=== PATIENT | female | born 1995 | race Caucasian/White ===

== ENCOUNTER 2024-08-26 23:52 | Emergency (ER) | payer OTHER, BC, SELFPAY ==
[2024-08-26 23:56] VITALS: BMI 35.0
[2024-08-26 23:59] VITALS: BP 117/80; PULSE 116; RESP 18; TEMP 37.2; O2SAT 96
--- NOTE | 2024-08-27 00:08 | XR_ITS ---
Examination: PA chest single view Technique: Upright PA chest single view Exam date and time: August 27, 2024 12:11 AM Indications: Coughing beginning 3 weeks ago Findings: Normal heart size Lungs are clear. The osseous structures are intact Impression: No active disease
--- NOTE | 2024-08-27 00:09 | PD.EDURI ---
Upper Respiratory Inf. RME/HPI General Chief Complaint: Flu Like Symptoms Stated Complaint: COUGH Time Seen by Provider: 08/27/24 00:08 Arrival date/time: 08/26/24 23:52 28F with no significant PMH presents to ED with 3 weeks of on and off cough. Patient was seen by teledoc 4 days ago and started on Augmentin. Limitations: no limitations Related Data Previous Rx's ?Medication ?Instructions ?Recorded acetaminophen 650 mg 650 mg PO Q8H PRN fever or pain 11/29/19 tablet,extended release #30 tabs benzonatate 100 mg capsule See Rx Instructions .Route 11/29/19 (Bhavya Montalvo) .COMPLEX cough #30 caps cetirizine 5 mg-pseudoephedrine ER 1 tab PO Q12H #20 tabs 11/29/19 120 mg tablet,extended release,12hr (Zyrtec-D) ibuprofen 600 mg tablet 600 mg PO Q8H PRN fever or pain 11/29/19 #30 tabs ipratropium bromide 21 mcg (0.03 See Rx Instructions .Route 11/29/19 %) nasal spray .COMPLEX #30 mL azithromycin 250 mg tablet See Rx Instructions PO .COMPLEX #6 08/27/24 tabs Allergies Allergy/AdvReac Type Severity Reaction Status Date / Time No Known Allergies Allergy Verified 11/29/19 18:05 Review of Systems Review of Systems Systems Reviewed: All systems reviewed, normal except as documented Constitutional Constitutional: Reports system reviewed and no additional complaints, except as documented, Denies fever(s) and Denies headache(s) ENT Ears, Nose, Mouth, and Throat: Denies disequilibrium and Denies headache(s) Cardiovascular Cardiovascular: Reports system reviewed and no additional complaints, except as documented, Denies chest pain and Denies dyspnea Respiratory Respiratory: Reports system reviewed and no additional complaints, except as documented, Reports as per HPI, Reports cough and Denies dyspnea Gastrointestinal Gastrointestinal: Reports system reviewed and no additional complaints, except as documented, Denies abdominal pain, Denies nausea and Denies vomiting Neurologic Neurologic: Reports system reviewed and no additional complaints, except as documented, Denies confusion, Denies disequilibrium and Denies headache(s) Psychiatric Psychiatric: Denies confusion Past Medical History Past Medical History CARDIAC: Negative Congestive Heart Failure RESPIRATORY: Negative Chronic Obstructive Pulmonary Disease (COPD) GENITOURINARY: Negative Renal Disease ENDOCRINE: Negative Diabetes Mellitus Type 1 or Diabetes Mellitus Type 2 Social History SMOKING STATUS: Never smoker ED Exam General Limitations: Present no limitations General appearance: Present alert and in no apparent distress Head Head exam: Present atraumatic Eye Eye exam: Present normal appearance, PERRL and EOMI ENT ENT exam: Present normal exam, normal oropharynx and mucous membranes moist Neck Neck exam: Present normal inspection, full ROM and trachea midline Chest Chest inspection: Present normal inspection and symmetric chest wall rise Respiratory Respiratory exam: Present normal lung sounds bilaterally Cardiovascular Cardiovascular exam: Present regular rate, normal rhythm and normal heart sounds Abdominal Exam Abdominal exam: Present soft and normal bowel sounds Extremities Exam Extremities exam: Present normal inspection and full ROM Back Exam Back exam: Present normal inspection and full ROM Neurological Exam Neurological exam: Present alert, oriented X3 and CN II-XII intact Psychiatric Psychiatric exam: Present normal affect and normal mood Skin Skin exam: Present warm, dry, intact and normal color Course Quality Measures none Orders Category Date Time Status XR chest 1V portable Stat Exams 08/27/24 00:08 Taken Vital Signs Vital signs: Vital Signs Temperature 99 F 08/26/24 23:59 Pulse Rate 116 H 08/26/24 23:59 Respiratory Rate 18 08/26/24 23:59 Blood Pressure 117/80 08/26/24 23:59 Pulse Oximetry (%) 96 08/26/24 23:59 Oxygen Delivery Method Room Air 08/26/24 23:59 O2 at 96% on RA and WNLs Upper Respiratory Infection MDM Narrative MDM Narrative:: 28F with no significant PMH presents to ED with 3 weeks of on and off cough. Patient was seen by teledoc 4 days ago and started on Augmentin. Physical exam reveals clear ENT and lungs. Patient is afebrile, calm, and alert. Wet XR reveals some PNA pending official report. Will add Z-haylee for atypical coverage to Augmentin given duration of symptoms. Patient data External records reviewed:: [facility] previous records Clinical information provided by:: patient Social determinants that could affect healthcare access:: none Patient has the following chronic illnesses:: none How is presenting disease/condition affected by chronic disease/condition?: no chronic disease Evaluation data The following diagnostics were reviewed and interpreted by me:: radiology exam(s) Lab and/or radiology exams considered but not ordered:: ordered Interpretation Summary: above Medications / Prescriptions Medications or Prescriptions considered but not ordered:: not ordered Medication administrations:: n/a Consultations Consultation(s) initiated? (list below): No Diagnosis Upper Respiratory Differential Diagnosis: upper respiratory infection, croup, otitis media, sinusitis, viral infection, bronchitis, influenza, pharyngitis and other (CAP, Valley Fever) Most likely diagnosis given after review of the tests above:: CAP Admission Indicated Admission indicated?: not indicated Admission Request Was there a request for admission?: No Disposition Plan Disposition Plan: Discharge Discharge Attestation Discharge Attestation: The patient and all family members were given an opportunity to ask questions and understood the discharge instructions. Discharge instructions specifically effects, indications for sooner follow up or return to the emergency department, and the expected course of current diagnosis. Patient condition: Stable Discharge Plan Plan Patient Disposition: HOME (Self Care) Prescriptions/Referrals Prescriptions/Med Rec: New azithromycin 250 mg tablet See Rx Instructions .ROUTE .COMPLEX Qty: 6 0RF Rx Instructions: For 250 mg dose pack: take 500 mg today (day 1), then 250 mg for 4 days (days 2-5) No Action acetaminophen 650 mg tablet extended release 650 mg PO Q8H PRN (Reason: fever or pain) Qty: 30 0RF Rx Instructions: swallow whole; do not crush, chew, break, dissolve, cut, or open ibuprofen 600 mg tablet 600 mg PO Q8H PRN (Reason: fever or pain) Qty: 30 0RF Rx Instructions: prn pain / fever ipratropium bromide 0.03 % spray,non-aerosol See Rx Instructions .Route .COMPLEX Qty: 30 0RF Rx Instructions: 2 sprays to each nostril q6-8 hours prn congestion; wait 30 seconds between sprays benzonatate [Tessalon Perles] 100 mg capsule See Rx Instructions .Route .COMPLEX Qty: 30 0RF Rx Instructions: 1-2 cap(s) PO Q8 hours prn cough cetirizine-pseudoephedrine [Zyrtec-D] 5-120 mg tablet extended release 12 hr 1 tab PO Q12H Qty: 20 0RF Problem List Clinical Impression: CAP (community acquired pneumonia) Patient/Caregiver Discharge Instructions Additional Instructions: Please follow-up with PCP within 24-48 hours and return immediately if symptoms worsen Finish Augmentin as well. Print Language: Kenyan Stand Alone Forms: Patient Portal Info Letter PA/MEDICAL DOSIMETRIST Supervising Physician PA/MEDICAL DOSIMETRIST Supervising Physician: Dr. Gregory
== END 2024-08-27 01:56 | disposition home or self-care (01) ==
LOC: SERX 08-27 03:53
PROVIDERS: Emergency Provider Emergency Medicine; PCP Family Medicine
DX: J18.9 Pneumonia, unspecified organism (principal)
CPT/HCPCS: 71045; 99283

== ENCOUNTER 2024-10-05 22:40 | Emergency (ER) | payer OTHER, BC, SELFPAY ==
[2024-10-05 22:40] VITALS: BMI 33.6
--- NOTE | 2024-10-05 22:52 | PC.NURSE ---
PT ELOPED BEFORE BEING TRIAGE BY PROVIDER.
== END 2024-10-05 22:52 | disposition left against medical advice (07) ==
LOC: SERX 22:58
PROVIDERS: Emergency Provider Emergency Medicine
DX: Z53.21 Procedure and treatment not carried out due to patient leaving prior to being seen by health care provider (principal)

== ENCOUNTER 2024-10-06 10:33 | Emergency (ER) | payer OTHER, BC, SELFPAY ==
[2024-10-06 12:08] VITALS: BP 125/85; PULSE 101; RESP 16; TEMP 37.2; O2SAT 98; BMI 36.3
--- NOTE | 2024-10-06 12:35 | XR_ITS ---
Examination: Complete OB ultrasound, less than 14 weeks, transabdominal Date and time of exam: October 06, 2024 1248 hours INDICATIONS: Vaginal bleeding beginning 2 days ago pelvic cramping beginning today Technique: Obstetrical ultrasound images less than 14 weeks performed via transabdominal imaging Findings: Uterus 9.8 x 6.9 x 6.0 cm Intrauterine gestational sac 1.6 cm corresponds to 6 weeks 4 days gestational age No pole No cardiac activity Right ovary obscured by bowel gas Left ovary 3.2 x 2.5 x 1.8 cm arterial flow IMPRESSION: Empty intrauterine gestational sac corresponding to 6 weeks 4 days gestational age Recommend transvaginal pelvic sonography follow-up to assess for viability
--- NOTE | 2024-10-06 12:36 | EDNOTE_ITS ---
<Statement entered by Barb Montaño MD - 10/07/24 06:45> As co-signing physician, I was present and available for consult prn. I concur with the plan and care as documented by the midlevel provider. ED Female Urogenital RME/HPI General Chief complaint: Urogenital-Female Stated complaint: VAGINAL BLEEDING x 2 DAYS,PAIN TODAY, + PREG Time Seen by Provider: 10/06/24 12:34 Arrival date/time: 10/06/24 10:33 RME / HPI RME / HPI Narrative: 28-year-old patient presents emergency department with complaint of needing an ultrasound. Patient states that she was sent here by her OB to get an ultrasound she states that she suffered what she thinks was a miscarriage last night because there was a lot of vaginal bleeding with blood products. She is SB1. Patient states that she either blood type A or B positive. She denies any pain currently she denies fever. Related Data Previous Rx's ?Medication ?Instructions ?Recorded acetaminophen 650 mg 650 mg PO Q8H PRN fever or pain 11/29/19 tablet,extended release #30 tabs benzonatate 100 mg capsule See Rx Instructions .Route 11/29/19 (Tescornelius Montalvo) .COMPLEX cough #30 caps cetirizine 5 mg-pseudoephedrine ER 1 tab PO Q12H #20 tabs 11/29/19 120 mg tablet,extended release,12hr (Zyrtec-D) ibuprofen 600 mg tablet 600 mg PO Q8H PRN fever or pain 11/29/19 #30 tabs ipratropium bromide 21 mcg (0.03 See Rx Instructions .Route 11/29/19 %) nasal spray .COMPLEX #30 mL azithromycin 250 mg tablet See Rx Instructions PO .COMPLEX #6 08/27/24 tabs Allergies Allergy/AdvReac Type Severity Reaction Status Date / Time No Known Allergies Allergy Verified 10/06/24 10:35 Review of Systems Review of Systems Systems Reviewed: All systems reviewed, normal except as documented Constitutional Constitutional: Reports system reviewed and no additional complaints, except as documented Cardiovascular Cardiovascular: Reports system reviewed and no additional complaints, except as documented Respiratory Respiratory: Reports system reviewed and no additional complaints, except as documented Gastrointestinal Gastrointestinal: Reports system reviewed and no additional complaints, except as documented Genitourinary Genitourinary: Reports system reviewed and no additional complaints, except as documented Musculoskeletal Musculoskeletal: Reports system reviewed and no additional complaints, except as documented Neurologic Neurologic: Reports system reviewed and no additional complaints, except as documented Psychiatric Psychiatric: Reports system reviewed and no additional complaints, except as documented Endocrine Endocrine: Reports system reviewed and no additional complaints, except as documented ED Exam General General appearance: Present alert and in no apparent distress Head Head exam: Present atraumatic and normocephalic ENT ENT exam: Present normal exam and normal oropharynx Chest Chest inspection: Present normal inspection and symmetric chest wall rise Respiratory Respiratory exam: Present normal lung sounds bilaterally Cardiovascular Cardiovascular exam: Present regular rate and normal rhythm Extremities Exam Extremities exam: Present normal inspection and full ROM Neurological Exam Neurological exam: Present alert and oriented X3 Course Quality Measures none Orders Category Date Time Status US OB <= 14 weeks fetus Stat Exams 10/06/24 12:35 Completed Urinalysis, C/S if Indicated Stat Lab 10/06/24 13:10 Completed Vital Signs Vital signs: Vital Signs Temperature 98.9 F 10/06/24 12:08 Pulse Rate 101 H 10/06/24 12:08 Respiratory Rate 16 10/06/24 12:08 Blood Pressure 125/85 H 10/06/24 12:08 Pulse Oximetry (%) 98 10/06/24 12:08 Oxygen Delivery Method Room Air 10/06/24 12:08 Urogenital - Female MDM Narrative MDM Narrative:: Signs and symptoms appears consistent with missed no products of conception noted on ultrasound patient stable to NH home to follow-up with [facility] Dr. Bolton Patient data External records reviewed:: None Clinical information provided by:: patient Social determinants that could affect healthcare access:: none Patient has the following chronic illnesses:: na How is presenting disease/condition affected by chronic disease/condition?: no chronic disease Evaluation data The following diagnostics were reviewed and interpreted by me:: radiology exam(s) Lab and/or radiology exams considered but not ordered:: radiology considered and ordered Interpretation Summary: unremarkable Medications / Prescriptions Medications or Prescriptions considered but not ordered:: na Medication administrations:: na Consultations Consultation(s) initiated? (list below): No Diagnosis Urogenital Female Differential Diagnosis: urinary tract infection, bacterial vaginosis, trichomoniasis, cervicitis, ovarian cyst, vaginitis, ruptured ovarian cyst and other Most likely diagnosis given after review of the tests above:: pelvic pain Admission Indicated Admission indicated?: not indicated Explain why admission is indicated or not indicated:: na Admission Request Was there a request for admission?: No Disposition Plan Disposition Plan: Discharge Discharge Attestation Discharge Attestation: The patient and all family members were given an opportunity to ask questions a nd understood the discharge instructions. Discharge instructions specifically effects, indications for sooner follow up or return to the emergency department, and the expected course of current diagnosis. Patient condition: Stable Discharge Plan Plan Patient Disposition: HOME (Self Care) Prescriptions/Referrals Prescriptions/Med Rec: No Action acetaminophen 650 mg tablet extended release 650 mg PO Q8H PRN (Reason: fever or pain) Qty: 30 0RF Rx Instructions: swallow whole; do not crush, chew, break, dissolve, cut, or open ibuprofen 600 mg tablet 600 mg PO Q8H PRN (Reason: fever or pain) Qty: 30 0RF Rx Instructions: prn pain / fever ipratropium bromide 0.03 % spray,non-aerosol See Rx Instructions .Route .COMPLEX Qty: 30 0RF Rx Instructions: 2 sprays to each nostril q6-8 hours prn congestion; wait 30 seconds between sprays benzonatate [Tessalon Perles] 100 mg capsule See Rx Instructions .Route .COMPLEX Qty: 30 0RF Rx Instructions: 1-2 cap(s) PO Q8 hours prn cough cetirizine-pseudoephedrine [Zyrtec-D] 5-120 mg tablet extended release 12 hr 1 tab PO Q12H Qty: 20 0RF azithromycin 250 mg tablet See Rx Instructions .ROUTE .COMPLEX Qty: 6 0RF Rx Instructions: For 250 mg dose pack: take 500 mg today (day 1), then 250 mg for 4 days (days 2-5) Referrals: Maneul Yen MD [Primary Care Provider] - In 1 week Problem List Clinical Impression: in first trimester Patient/Caregiver Discharge Instructions Print Language: Ghanaian Stand Alone Forms: [employer] Info., Patient Portal Info Letter
[2024-10-06 13:44] LABS: Collection Type, Urine Voided
[2024-10-06 13:50] LABS: Bilirubin,Urine Negative (Negative); Blood,Urine 1+ (Negative); Clarity,Urine Clear (Clear/Hazy); Color,Urine Lt-Yellow (Lt Yel-Yel); Culture Indicated,Urine Not Indicated; Glucose, Urine Negative (Negative); Ketones,Urine Negative (Negative); Leukocyte Esterase,Urine Negative (Negative); Nitrite,Urine Negative (Negative); Protein,Urine Negative (Neg - Trace); RBC,Urine 6 /hpf (0-3); Specific Gravity,Urine 1.017 (1.001-1.035); Squamous Epithelial Cell,Urine 2 /hpf (0-5); Urobilinogen,Urine Negative mg/dL (0.0-1.0); WBC,Urine 1 /hpf (0-5)
== END 2024-10-06 14:32 | disposition home or self-care (01) ==
PROVIDERS: Physician Assistant; Emergency Provider Emergency Medicine; PCP Family Medicine
DX: O03.9 Complete or unspecified spontaneous abortion without complication (principal)
CPT/HCPCS: 76801; 81001; 99284

== ENCOUNTER 2025-05-01 20:55 | Inpatient (IN) | payer OTHER, BC, SELFPAY ==
[2025-05-01] VITALS (10 sets, daily range): BP systolic 90–140; BP diastolic 53–85; PULSE 96–133; RESP 16–98; TEMP 36.6–36.8; O2SAT 98–100; BMI 37.3
[2025-05-01] MEDS: RINGERS LACTATED 1000 ML 1,000 ML 999 ML IV (21:35)
[2025-05-01] MEDS: ceFAZolin/D5W 2 GM IV 2 GM/100 ML BAG IV (21:38)
[2025-05-01] MEDS: FAMOTIDINE INJ 10 MG/ML VIAL 2 ML 20 MG IV (21:38)
[2025-05-01] MEDS: METOCLOPRAMIDE INJ 5 MG/ML VIAL 2 ML 10 MG IVP (21:40)
[2025-05-01 21:49] LABS: Basophils # (Auto) 0.0 Thou/mm3 (0.0-0.2); Basophils % (Auto) 0 % (0-2.5); Eosinophils # (Auto) 0.1 Thou/mm3 (0.0-0.5); Eosinophils % (Auto) 1 % (0-10); Hematocrit 32.9 % (36.0-46.0); Hemoglobin 10.8 g/dL (12.0-16.0); Immature Granulocytes Auto 0.06 Thou/mm3 (0.00-0.00); Lymphocytes # (Auto) 3.1 Thou/mm3 (1.0-4.8); Lymphocytes % (Auto) 22 % (10-50); Mean Corpuscular HGB Conc 32.8 g/dl (31.0-37.0); Mean Corpuscular Hemoglobin 26.7 pg (25.0-35.0); Mean Corpuscular Volume 81 fL (80-100); Monocytes # (Auto) 0.6 Thou/mm3 (0.0-0.8); Monocytes % (Auto) 4 % (0-12); Neutrophils # (Auto) 10.3 Thou/mm3 (1.8-7.7); Neutrophils % (Auto) 72 % (37-80); Nucleated Red Blood Cell # 0.00 Thou/mm3 (0.00-0.00); Nucleated Red Blood Cell % 0 /100 WBC (0); Platelet Count 271 Thou/mm3 (140-440); RDW Standard Deviation 43.8 fL (36.4-46.3); Red Blood Count 4.05 Miln/mm3 (4.00-5.20); White Blood Count 14.2 Thou/mm3 (3.6-11.0)
[2025-05-01 21:58] LABS: INR 0.9 (0.9-1.3); Partial Thromboplastin Time 26.3 Seconds (22.0-36.0); Prothrombin Time 10.3 Seconds (9.0-12.2)
[2025-05-01 22:02] LABS: Alanine Aminotransferase < 7 U/L (10-49); Albumin, Serum 4.5 gm/dL (3.5-5.0); Albumin/Globulin Ratio 2.0 (1.2-2.2); Alkaline Phosphatase 113 U/L (46-116); Anion Gap 14 (7-16); Aspartate Amino Transferase < 10 U/L (0-34); BUN/Creatinine Ratio 10 Ratio (12-20); Bilirubin,Total 0.5 mg/dL (0.3-1.2); Blood Urea Nitrogen 6 mg/dL (9-23); Calcium 10.1 mg/dL (8.3-10.6); Calcium (Corrected) 10.1 mg/dL (8.5-10.1); Carbon Dioxide 20.3 mMol/L (20.0-31.0); Chloride 105 mMol/L (98-107); Creatinine (Component) 0.6 mg/dL (0.6-1.3); Estimated Creatinine Clearance 143.9 mL/min (>60); Globulin 2.3 gm/dL (2.3-3.5); Glucose 96 mg/dL (74-106); Osmolality,Calculated 275 (275-295); Potassium 3.7 mMol/L (3.4-5.1); Sodium 139 mMol/L (136-145); Total Protein 6.8 gm/dL (5.7-8.2); eGFR > 60 See Note
[2025-05-01 23:09] LABS: Syphilis Nonreactive (Nonreactive)
[2025-05-01] MEDS: OXYTOCIN in NS 20 units 20 UNIT/1,000 ML BAG 125 UNIT IV (23:18)
[2025-05-01 23:29] LABS: HIV (1&2) Antibody Rapid Non-Reactive
[2025-05-01 23:46] LABS: Basophils # (Auto) 0.0 Thou/mm3 (0.0-0.2); Basophils % (Auto) 0 % (0-2.5); Eosinophils # (Auto) 0.1 Thou/mm3 (0.0-0.5); Eosinophils % (Auto) 1 % (0-10); Hematocrit 23.7 % (36.0-46.0); Immature Granulocytes Auto 0.13 Thou/mm3 (0.00-0.00); Lymphocytes # (Auto) 2.5 Thou/mm3 (1.0-4.8); Lymphocytes % (Auto) 12 % (10-50); Mean Corpuscular HGB Conc 32.5 g/dl (31.0-37.0); Mean Corpuscular Hemoglobin 26.6 pg (25.0-35.0); Mean Corpuscular Volume 82 fL (80-100); Monocytes # (Auto) 0.8 Thou/mm3 (0.0-0.8); Monocytes % (Auto) 4 % (0-12); Neutrophils # (Auto) 16.6 Thou/mm3 (1.8-7.7); Neutrophils % (Auto) 82 % (37-80); Nucleated Red Blood Cell # 0.00 Thou/mm3 (0.00-0.00); Nucleated Red Blood Cell % 0 /100 WBC (0); Platelet Count 246 Thou/mm3 (140-440); RDW Standard Deviation 43.9 fL (36.4-46.3); Red Blood Count 2.89 Miln/mm3 (4.00-5.20); White Blood Count 20.1 Thou/mm3 (3.6-11.0)
[2025-05-01 23:47] LABS: Hemoglobin 7.7 g/dL (12.0-16.0)
--- NOTE | 2025-05-01 23:52 | PD.LDHP ---
Documentation for date of: 05/01/25 OB Labor/Induct. HPI History of Present Illness Chief complaint: Heavy vaginal bleeding : 4 Para: 2 Term pregnancies: 2 Living children: 2 History of Abortions: Spontaneous and Elective: 1 History of sections: Yes (X 2) History of : No KELLY: 06/04/25 Gestational Age (weeks): 35 Gestational Age (days): 1 History of present illness: The patient is a 29-year-old -0-1-2 history of x 2 , the first baby was in 2014 secondary to distress. The baby was 37-6/7 weeks. She was delivered at [facility] by Dr. Everett. The second baby was born in 2018. She ruptured her bag at [address] Jaime and Rylie performed a repeat . The current has been complicated by a complete placenta previa. She states they gave her around a 10% chance of a placenta accreta on an MRI. She has been managed by Dr. Bolton in [place]. Patient stated she had some heavy vaginal bleeding tonight at 2030 and came in by ambulance. She presented to triage at 2101. I was at bedside by 2104. It was unclear whether she broke her bag but patient was bleeding fairly heavily. No contractions. Her blood pressure was stable. She was consented for an emergent repeat low-transverse section, possible hysterectomy. Dr Church was called in to assist for potential hysterectomy. Of note she was being co managed throughout this with the maternal- medicine physicians at [facility]. She was not given steroids this for lung maturity. She states she was going to have a scheduled in [place] at 37-1/2 weeks. To IV lines were not placed by the squad, 4 units of blood were placed on hold. Patient was consented for a repeat possible hysterectomy. The patient was down in the main OR OR and a timeout was called for a at 2203. Of note no records are available on presentation. All records were drawn. Her blood type is B+. History of Present Dating criteria: LMP confirmed by 1st trimester US Adequate Care: Yes Ultrasounds: abnormal US findings Abnormal ultrasound findings: Complete placenta previa per patient, possible placental accreta clubfoot on baby per patient. No records are available. Obstetrical complications: other (Complete placenta previa, previous x 2, possible placenta accreta) Medical complications: none Labs Maternal Blood Type: B Pos Labs: Unknown: RPR, Hepatitis B, Rubella Titre, HIV, Chlamydia, Gonorrhea, Herpes Type 1, Herpes Type 2, Group Beta Strep and Covid-19 Review of Systems Review of Systems Narrative Review of Systems: Heavy vaginal bleeding with loss of fluids at 2030 p.m. no contractions patient reported movement. Past Medical History Surgical History SURGICAL: Positive Section (X 2) Past Medical History Comments PMH COMMENT: Patient denies significant past medical history including no diabetes asthma hypertension. She only reports 2 C-sections. No other significant past medical history she has had 1 miscarriage in October 29 but no D&C. Meds Home Medications and Allergies Allergies Allergy/AdvReac Type Severity Reaction Status Date / Time No Known Allergies Allergy Verified 10/06/24 10:35 OB Exam Physical Exam Vital signs: Temp Pulse Resp BP 98.2 F 118 H 17 133/71 H 05/01/25 21:08 05/01/25 21:43 05/01/25 21:08 05/01/25 21:43 Narrative: Patient is alert and oriented x 3 she is anxious but otherwise acting appropriately. Her fundus is firm nontender she has a well-healed Pfannenstiel scar. She has a moderate amount of vaginal bleeding consistently coming out and is sitting on a Chux pad in a puddle of blood. No large clots coming are coming out. On the monitor patient is not beatrice regularly the heart tones are in the 140s and reactive for a 35-week gestation. 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 (6-10) OB Results Labs 05/01/25 23:43 05/01/25 21:22 Labs: Short CBC 05/01/25 05/01/25 Range/Units 20:50 23:43 WBC 14.2 H 20.1 H D (3.6-11.0) Thou/mm3 Hgb 10.8 L 7.7 L D (12.0-16.0) g/dL Hct 32.9 L 23.7 L (36.0-46.0) % Plt Count 271 246 (140-440) Thou/mm3 BMP 05/01/25 21:22 Sodium 139 Potassium 3.7 Chloride 105 Carbon Dioxide 20.3 BUN 6 L Creatinine 0.6 Glucose 96 Calcium 10.1 Liver Function 05/01/25 Range/Units 21:22 Total Bilirubin 0.5 (0.3-1.2) mg/dL AST < 10 (0-34) U/L ALT < 7 L (10-49) U/L Alkaline Phosphatase 113 (46-116) U/L Albumin 4.5 (3.5-5.0) gm/dL OB Assessment & Plan Assessment and Plan (1) Complete placenta previa with hemorrhage, third trimester: Status: Acute Assessment and plan: Patient is consented for an emergent repeat low-transverse section possible hysterectomy. The risks of procedure were discussed with patient and her in OB triage in detail including the risk of bleeding, infection, the significant risk of a blood transfusion, damage to bowel, bladder, blood vessels, or other organs. Prolonged hospital stay and further surgery should complications occur. The risks of a hysterectomy were discussed with the patient including the risk of infection and the inability to have more children should hysterectomy occur. All questions were answered all consents were signed. Pre-delivery CBC reveals a hemoglobin of 10.8. (2) Supervision of high risk in third trimester: Status: Acute (3) Previous section complicating , antepartum condition or complication: Status: Acute Additional Plan Additional Plan Comment: Emergent repeat , possible hysterectomy in the main OR. 4 units of blood typed and crossed. 2 IVs and lines in. Dr Church called in to assist.
[2025-05-02] VITALS (21 sets, daily range): BP systolic 99–128; BP diastolic 55–80; PULSE 94–108; RESP 15–19; TEMP 36.4–37.2; O2SAT 97–100
--- NOTE | 2025-05-02 00:11 | ESOP_ITS ---
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 She states she had an MRI this and someone told her she has a 10% chance of a placenta accreta . The patient's care was with Dr. Bolton in [place]. She was being comanaged by maternal- medicine in [place] at [facility]. No care records were available on admission. The patient states she was going to be scheduled for a at 37-1/2 weeks. She was supposed to deliver in [place]. She was not given steroids. She came by ambulance to OB triage at 2105, on 05/01/2025 with heavy vaginal bleeding that started suddenly a t 2029. It was unclear whether the patient had ruptured her membranes. heart tones were reactive for 35 weeks, no contractions were seen. Her blood pressure was stable with no signs of preeclampsia. The patient was consented for an emergent repeat low-transverse section, possible hysterectomy. 2 IV lines were started. 4 units of blood were placed on hold. The main OR was alerted. Dr Church was called in to assist. The timeout in the OR was 2202. Pre-Op diagnosis: 1. IUP at 35 1/7 weeks 2. Complete placenta previa 3. Previous x 2 4. Possible placenta accreta 5. Heavy vaginal bleeding, possible premature rupture of membranes. Post-Op diagnosis: Same Anesthesia type: Spinal Procedure description: After obtaining informed consent for both a repeat and a possible hysterectomy, the patient was brought back to the main OR with [address] 4 units of blood were on hold. The NICU team was alerted Dr. Manolo barrientos was present for a premature in the OR along with respiratory therapist in 2 NICU RNs. Spinal anesthesia was placed. A Schreiber catheter was placed. The patient was then prepped and draped in the dorsal supine position in a normal sterile fashion. The patient was given 2 g of Ancef by anesthesia. A Pfannenstiel skin incision was made through the patient's prior scar and carried down to the underlying fascia. The fascia was incised in the midline and the fascial incision extended laterally using Carroll scissors. The superior aspect of the fascia was grasped with Lalo clamps, and the underlying rectus muscles dissected off using blunt and sharp dissection. This was repeated in the inferior aspect the incision. The rectus muscles were in the midline, and the peritoneal cavity entered with blunt dissection. This was extended superiorly and inferiorly with good visualization of the bladder. The bladder blade was inserted and the uterus was incised in a low transverse fashion using a scalpel above the bladder reflection. The uterine incision was extended laterally using blunt dissection with the surgeon's fingers. The bag of water was ruptured and clear fluid was noted. The bladder blade was removed and the was delivered atraumatically in a vertex presentation. The cord was clamped and cut and the infant was handed off to the waiting pediatric staff. Cord blood and cord gases were sent. The placenta was then manually removed and handed off the operating field. Of note a complete placenta previa was noted. No signs of accreta were noted. The uterine incision was repaired with 0 Monocryl in a running locked fashion. Excellent hemostasis was noted. The uterus was returned to the patient's abdominal cavity and copious irrigation carried out with warm normal saline. The uterine incision was reexamined and noted to be hemostatic. After ensuring the rectus muscles were hemostatic, these were reapproximated in the midline using a running suture of 0 Monocryl. The fascia was closed with 0 Vicryl in a running fashion. The subcutaneous tissues were irrigated and found to be hemostatic. These were reapproximated using a running suture of 2-0 plain. The skin was closed with a subcuticular suture of 4-0 Vicryl. At the end of the procedure, the patient was frog-legged and I checked the patient vaginally .She was found to be 2 cm dilated and had a lot of bl blood and clots in her lower uterine segment. Clots were evacuated manually. A Bakri balloon was then placed with 350 cc of normal saline and packed with vaginal packing. Total EBL the case was 850 cc. Approximately 500 during the and another 350 at the end of the case. The procedure was then terminated. The patient tolerated the procedure well, sponge, lap, needle and instrument counts were correct x 2. Patient went to the recovery area awake and in stable condition. The baby went to the NICU for evaluation for prematurity. Fluids: other (100 cc of albumin) Fluid amount (mL): 4,500 Urine output (mL): 150 Specimen: none Implants: None Estimated blood loss (ml): 850 Findings: Liveborn male in the OA presentation with a loose nuchal cord x 1 no meconium Apgars were 7, 8, and 9. Blood gases were drawn. Weight was 2560 g. Patient had a complete placenta previa. No accreta. Tubes uterus ovaries grossly normal. Very little scar tissue present in the patient's abdomen. She had a very thin lower uterine segment with no window noted. Complications: intraoperative hemorrhage Narrative: Patient was given TXA, IM Methergine and a Bakri balloon was placed in her lower uterine segment with 350 cc of LR Surgical staff salon shampoo assistant: Dr. Lynnette Meade CRNA Diagnosis Discharge Diagnosis (1) Previous section complicating , antepartum condition or c omplication: Status: Acute (2) Complete placenta previa with hemorrhage, third trimester: Status: Acute (3) Supervision of high risk in third trimester: Status: Acute Problem List Completed Was Problem List Reviewed/Reconciled?: Yes
[2025-05-02 00:25] LABS: Amphetamine/Metham Scrn,Ur OB Negative (Negative); Benzoylecgonine Screen, Ur OB Negative (Negative); Opiate Screen,Urine OB Negative (Negative); THC Screen,Urine OB Negative (Negative)
[2025-05-02 00:37] LABS: Hepatitis B Surface Ab Reactive (Immune) (Immune); Rubella, IgG Antibody Reactive (Immune)
--- NOTE | 2025-05-02 00:45 | PD.LDDELS ---
Data ([place]) Data Hx Section: Yes (X 2) Maternal Blood Type: B Pos Rubella Titre: Unknown RPR: Unknown Labs: Unknown: RPR, Hepatitis B, HIV, Chlamydia, Gonorrhea, Herpes Type 1, Herpes Type 2 and Group Beta Strep : 4 Term: 2 : 0 Livin Abortions: Spontaneous & Theraputic: 1 Delivery Data ([place]) Labor Data Initiation of labor: Spontaneous Induction/Augmentation Agent: None ROM date: 05/01/25 ROM time: 22:07 Amniotic membrane rupture type: Artificial Amniotic fluid description: Clear Delivery Data EDC: 06/04/25 EDC calculated by:: other (No care records available) Date of arrival to unit: 05/01/25 Time of arrival to unit: 21:02 Onset of labor date: 05/01/25 Onset of labor time: 22:07 delivery date: 05/01/25 [place] delivery time: 22:07 Gestational age (weeks): 35 Gestational age (days): 1 Placenta delivery date: 05/01/25 Placenta delivery time: 22:08 Delivered by: Michelle Montenegro ([facility]) Delivery nurse: Shaka Shah nurse: Jenni Carranza Ward Clerk at delivery: Yes (Dr. Placsencia) Support person(s) at delivery: Father the baby Other staff at delivery: see periop doc Delivery Method Delivery method: Low Transverse Presentation: Vertex position: OA Anesthesia Type Anesthesia Type: Spinal Anesthesia type: Spinal Delivery Room Medications Delivery room medications: Methergine 0.2 mg IM, Pitocin 20 u IV and other (TXA) Placenta Placenta delivery description: Manual Removal Placenta Disposition: Sent to Pathology Cord blood sent to lab: Yes cord blood collection: Cord Blood Type, Arterial Cord Blood Gas and Venous Cord Blood Gas Episiotomy Episiotomy description: None EBL Estimated blood loss (ml): 850 Umbilical Cord cord description: 3 Vessels Additional Procedures She op report for further details Complications Complications: Intraoperative hemorrhage, Bakri balloon placed immediately postop in the OR Data ([place]) Data order: 1 [place]'s gender: Male weight (gms): 2560 g Weight (pounds): 5 lbs and 10.3 ozs 1 minute: 7 5 minutes: 8 10 minutes: 9
[2025-05-02] MEDS: KETOROLAC INJ 30 MG/ML VIAL IVP ×4 (02:00→23:00)
[2025-05-02] MEDS: OXYTOCIN in NS 20 units 20 UNIT/1,000 ML BAG 125 UNIT IV (09:15)
[2025-05-02 10:22] LABS: Chlamydia trachomatis PCR Negative (Not Detect); Neisseria Gonorrhoeae DNA PCR Negative (Not Detect); Trichomonas Negative (Negative)
[2025-05-02 11:28] LABS: Basophils # (Auto) 0.0 Thou/mm3 (0.0-0.2); Basophils % (Auto) 0 % (0-2.5); Eosinophils # (Auto) 0.1 Thou/mm3 (0.0-0.5); Eosinophils % (Auto) 1 % (0-10); Hematocrit 27.0 % (36.0-46.0); Hemoglobin 9.1 g/dL (12.0-16.0); Immature Granulocytes Auto 0.04 Thou/mm3 (0.00-0.00); Lymphocytes # (Auto) 2.2 Thou/mm3 (1.0-4.8); Lymphocytes % (Auto) 17 % (10-50); Mean Corpuscular HGB Conc 33.7 g/dl (31.0-37.0); Mean Corpuscular Hemoglobin 27.6 pg (25.0-35.0); Mean Corpuscular Volume 82 fL (80-100); Monocytes # (Auto) 0.6 Thou/mm3 (0.0-0.8); Monocytes % (Auto) 5 % (0-12); Neutrophils # (Auto) 9.9 Thou/mm3 (1.8-7.7); Neutrophils % (Auto) 77 % (37-80); Nucleated Red Blood Cell # 0.00 Thou/mm3 (0.00-0.00); Nucleated Red Blood Cell % 0 /100 WBC (0); Platelet Count 195 Thou/mm3 (140-440); RDW Standard Deviation 43.7 fL (36.4-46.3); Red Blood Count 3.30 Miln/mm3 (4.00-5.20); White Blood Count 12.8 Thou/mm3 (3.6-11.0)
[2025-05-02] MEDS: ceFAZolin/D5W 2 GM IV 2 GM/100 ML BAG IV ×2 (13:19→22:04)
[2025-05-02] MEDS: HYDROcodone/APAP 5/325 TABLET 1 TAB PO (19:55)
[2025-05-02] MEDS: Milk Of Magnesia Susp 30 ML UDC PO (19:56)
[2025-05-03] VITALS: BP 106/70; PULSE 85; RESP 18; TEMP 36.4; O2SAT 97
[2025-05-03 04:10] VITALS: BP 99/64; PULSE 100; RESP 18; TEMP 36.5; O2SAT 98
[2025-05-03 05:48] LABS: Basophils # (Auto) 0.0 Thou/mm3 (0.0-0.2); Basophils % (Auto) 1 % (0-2.5); Eosinophils # (Auto) 0.2 Thou/mm3 (0.0-0.5); Eosinophils % (Auto) 2 % (0-10); Hematocrit 27.4 % (36.0-46.0); Hemoglobin 9.0 g/dL (12.0-16.0); Immature Granulocytes Auto 0.05 Thou/mm3 (0.00-0.00); Lymphocytes # (Auto) 2.0 Thou/mm3 (1.0-4.8); Lymphocytes % (Auto) 24 % (10-50); Mean Corpuscular HGB Conc 32.8 g/dl (31.0-37.0); Mean Corpuscular Hemoglobin 27.6 pg (25.0-35.0); Mean Corpuscular Volume 84 fL (80-100); Monocytes # (Auto) 0.3 Thou/mm3 (0.0-0.8); Monocytes % (Auto) 4 % (0-12); Neutrophils # (Auto) 5.9 Thou/mm3 (1.8-7.7); Neutrophils % (Auto) 69 % (37-80); Nucleated Red Blood Cell # 0.00 Thou/mm3 (0.00-0.00); Nucleated Red Blood Cell % 0 /100 WBC (0); Platelet Count 221 Thou/mm3 (140-440); RDW Standard Deviation 45.8 fL (36.4-46.3); Red Blood Count 3.26 Miln/mm3 (4.00-5.20); White Blood Count 8.5 Thou/mm3 (3.6-11.0)
[2025-05-03] MEDS: HYDROcodone/APAP 5/325 TABLET 1 TAB PO ×3 (07:21→23:56)
[2025-05-03 07:24] VITALS: BP 110/75; PULSE 95; RESP 18; TEMP 36.7; O2SAT 95
[2025-05-03] MEDS: DOCUSATE SOD 100 MG CAPSULE PO (08:18)
[2025-05-03] MEDS: IBUPROFEN TAB 400 MG TABLET 800 MG PO ×2 (10:48→21:09)
[2025-05-03 15:55] VITALS: BP 120/78; PULSE 99; RESP 18; TEMP 36.3; O2SAT 99
[2025-05-03] MEDS: HYDROcodone/APAP 5/325 TABLET 2 TAB PO (17:01)
--- NOTE | 2025-05-03 19:10 | PD.LDPPPRG ---
Subjective Subjective Interval history: The patient is a 29-year-old G3 now P2-1-0-3 who under went an emergent repeat low-transverse section for active bleeding and a placenta previa late in the evening right before midnight 05/01/2025. The patient had a Bakri balloon placed secondary to lower uterine segment bleeding. I placed this in the operating room while she was still on the table. The patient dropped her blood pressure postoperatively and was given 2 units of packed red blood cells. Her predelivery hemoglobin was 10.8 her postdelivery hemoglobin was 7.7 after 2 units of packed red blood cells her hemoglobin is 9.1. This morning around 730 when I rounded on her, she was resting comfortably in bed. She was up to see her baby in the nursery. Her blood pressure and pulse were stable. Her was at bedside. She denied heavy bleeding fevers chills she was tolerating a general diet passing flatus and eager to take shower. Dr. Enrique had taken her vaginal packing and Bakri balloon out at approximately 24 hours which was close to midnight on 02 May. Exam Vital Signs Temp Pulse Resp BP Pulse Ox O2 Del Method 97.4 F 99 18 120/78 99 Room Air 05/03/25 15:55 05/03/25 15:55 05/03/25 15:55 05/03/25 15:55 05/03/25 15:55 05/03/25 15:55 Narrative Exam Patient is alert alert and oriented x 3 no apparent distress. Pain is controlled with oral pain medication she is tolerating a general diet. Fundus is firm and nontender incision is clean dry and intact Objective Labs 05/03/25 05:10 05/01/25 21:22 Labs: Laboratory Results - last 24 hr 05/03/25 05:10 WBC 8.5 RBC 3.26 L Hgb 9.0 L Hct 27.4 L MCV 84 MCH 27.6 MCHC 32.8 RDW Std Deviation 45.8 Plt Count 221 Neut % (Auto) 69 Lymph % (Auto) 24 [place] % (Auto) 4 Eos % (Auto) 2 Baso % (Auto) 1 Neut # (Auto) 5.9 Lymph # (Auto) 2.0 [place] # (Auto) 0.3 Eos # (Auto) 0.2 Baso # (Auto) 0.0 Immature Gran # (Auto) 0.05 H Absolute Nucleated RBC 0.00 Immature Gran % 1 H Nucleated RBC % 0 Assessment & Plan Problem List (1) Previous section complicating , antepartum condition or complication: Problem details: Ambulate, okay to shower ,continue general diet. P.O pain medication as needed. Recheck CBC in the morning. Keep Hep-Lock in now. If hemoglobin is stable in the morning will discharge home. Status: Acute (2) Complete placenta previa with hemorrhage, third trimester: Status: Acute (3) Supervision of high risk in third trimester: Status: Acute Time Spent With Patient Time: Total time spent is greater than 50% in coordination of care (as documented) at patient's floor/unit and/or counseling patient: Time with patient: less than 15 minutes
[2025-05-03 19:45] VITALS: BP 120/80; PULSE 101; RESP 16; TEMP 36.9; O2SAT 96
[2025-05-04 03:25] VITALS: BP 108/73; PULSE 91; RESP 18; TEMP 36.8; O2SAT 98
[2025-05-04] MEDS: SIMETHICONE 80 MG CHEW PO (03:35)
[2025-05-04] MEDS: IBUPROFEN TAB 400 MG TABLET 800 MG PO ×3 (04:50→23:26)
[2025-05-04] MEDS: HYDROcodone/APAP 5/325 TABLET 1 TAB PO ×3 (06:08→18:38)
[2025-05-04 06:16] LABS: Basophils # (Auto) 0.0 Thou/mm3 (0.0-0.2); Basophils % (Auto) 0 % (0-2.5); Eosinophils # (Auto) 0.3 Thou/mm3 (0.0-0.5); Eosinophils % (Auto) 3 % (0-10); Hematocrit 27.8 % (36.0-46.0); Hemoglobin 9.0 g/dL (12.0-16.0); Immature Granulocytes Auto 0.03 Thou/mm3 (0.00-0.00); Lymphocytes # (Auto) 2.0 Thou/mm3 (1.0-4.8); Lymphocytes % (Auto) 23 % (10-50); Mean Corpuscular HGB Conc 32.4 g/dl (31.0-37.0); Mean Corpuscular Hemoglobin 27.8 pg (25.0-35.0); Mean Corpuscular Volume 86 fL (80-100); Monocytes # (Auto) 0.4 Thou/mm3 (0.0-0.8); Monocytes % (Auto) 5 % (0-12); Neutrophils # (Auto) 6.0 Thou/mm3 (1.8-7.7); Neutrophils % (Auto) 69 % (37-80); Nucleated Red Blood Cell # 0.00 Thou/mm3 (0.00-0.00); Nucleated Red Blood Cell % 0 /100 WBC (0); Platelet Count 217 Thou/mm3 (140-440); RDW Standard Deviation 46.6 fL (36.4-46.3); Red Blood Count 3.24 Miln/mm3 (4.00-5.20); White Blood Count 8.7 Thou/mm3 (3.6-11.0)
[2025-05-04 07:10] VITALS: BP 112/76; PULSE 88; RESP 18; TEMP 36.5; O2SAT 95
--- NOTE | 2025-05-04 08:49 | ESPR_ITS ---
Subjective Subjective Interval history: Patient is a 29-year-old -1-0-3 post op day 3 after an emergent repeat C- section for placenta previa with bleeding. Patient had a prior history of 2 C- sections. Her delivery was complicated by intraoperative hemorrhage and placement of a Bakri balloon. Patient did receive 2 units of packed red blood cells. Her hemoglobin is holding steady at 9. She is ambulating. She is tolerating a general diet. She is passing flatus. A plan will be to follow her hemoglobin tomorrow. If she is stable she can go home tomorrow. Exam Vital Signs Temp Pulse Resp BP Pulse Ox O2 Del Method 97.7 F 88 18 112/76 95 Room Air 05/04/25 07:10 05/04/25 07:10 05/04/25 07:10 05/04/25 07:10 05/04/25 07:10 05/04/25 07:10 Narrative Exam Patient is alert and oriented x 3 no apparent distress. Fundus is firm nontender. Incision is clean dry and intact Objective Labs 05/04/25 05:45 05/01/25 21:22 Labs: Laboratory Results - last 24 hr 05/04/25 05:45 WBC 8.7 RBC 3.24 L Hgb 9.0 L Hct 27.8 L MCV 86 MCH 27.8 MCHC 32.4 RDW Std Deviation 46.6 H Plt Count 217 Neut % (Auto) 69 Lymph % (Auto) 23 [place] % (Auto) 5 Eos % (Auto) 3 Baso % (Auto) 0 Neut # (Auto) 6.0 Lymph # (Auto) 2.0 [place] # (Auto) 0.4 Eos # (Auto) 0.3 Baso # (Auto) 0.0 Immature Gran # (Auto) 0.03 H Absolute Nucleated RBC 0.00 Immature Gran % 0 Nucleated RBC % 0 Assessment & Plan Problem List (1) Previous section complicating , antepartum condition or complication: Problem details: Ambulate, okay to shower ,continue general diet. P.O pain medication as needed. Recheck CBC in the morning. Keep Hep-Lock in now. If hemoglobin is stable in the morning will discharge home Status: Acute (2) Complete placenta previa with hemorrhage, third trimester: Status: Acute (3) Supervision of high risk in third trimester: Status: Acute Time Spent With Patient Time: Total time spent is greater than 50% in coordination of care (as documented) at patient's floor/unit and/or counseling patient: Time with patient: less than 15 minutes
[2025-05-04] MEDS: Milk Of Magnesia Susp 30 ML UDC PO (09:28)
[2025-05-04] MEDS: DOCUSATE SOD 100 MG CAPSULE PO (09:28)
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
[2025-05-04 15:40] VITALS: BP 110/73; PULSE 87; RESP 16; TEMP 36.8; O2SAT 95
[2025-05-04 19:32] VITALS: BP 108/73; PULSE 85; RESP 18; TEMP 36.6; O2SAT 100
[2025-05-05 03:54] VITALS: BP 101/69; PULSE 91; RESP 19; TEMP 36.6; O2SAT 97
[2025-05-05 05:18] LABS: Basophils # (Auto) 0.0 Thou/mm3 (0.0-0.2); Basophils % (Auto) 0 % (0-2.5); Eosinophils # (Auto) 0.3 Thou/mm3 (0.0-0.5); Eosinophils % (Auto) 5 % (0-10); Hematocrit 26.2 % (36.0-46.0); Immature Granulocytes Auto 0.05 Thou/mm3 (0.00-0.00); Lymphocytes # (Auto) 2.3 Thou/mm3 (1.0-4.8); Lymphocytes % (Auto) 32 % (10-50); Mean Corpuscular HGB Conc 32.8 g/dl (31.0-37.0); Mean Corpuscular Hemoglobin 27.9 pg (25.0-35.0); Mean Corpuscular Volume 85 fL (80-100); Monocytes # (Auto) 0.4 Thou/mm3 (0.0-0.8); Monocytes % (Auto) 5 % (0-12); Neutrophils # (Auto) 4.3 Thou/mm3 (1.8-7.7); Neutrophils % (Auto) 58 % (37-80); Nucleated Red Blood Cell # 0.00 Thou/mm3 (0.00-0.00); Nucleated Red Blood Cell % 0 /100 WBC (0); Platelet Count 225 Thou/mm3 (140-440); RDW Standard Deviation 46.2 fL (36.4-46.3); Red Blood Count 3.08 Miln/mm3 (4.00-5.20); White Blood Count 7.4 Thou/mm3 (3.6-11.0)
[2025-05-05 05:36] LABS: Hemoglobin 8.6 g/dL (12.0-16.0)
[2025-05-05 07:00] VITALS: BP 108/74; PULSE 99; RESP 16; TEMP 36.6; O2SAT 98
--- NOTE | 2025-05-05 07:51 | PD.LDPPPRG ---
Subjective Subjective Interval history: Delivery type: for suspected placenta previa/accreta surgery complicated by hemorrhage currently stable Patient doing well this morning. No acute complaints. Ambulating, tolerating p.o. and voiding without difficulty. HTN/Pre-Eclampsia screen: No chest pain, shortness of breath, headache, visual changes, epigastric or right upper quadrant pain. Breast-feeding, lochia diminishing. Bowel: Flatus+/ BM+ Exam Vital Signs Temp Pulse Resp BP Pulse Ox O2 Del Method 97.8 F 99 16 108/74 98 Room Air 05/05/25 07:00 05/05/25 07:00 05/05/25 07:00 05/05/25 07:00 05/05/25 07:00 05/05/25 07:00 Constitutional Constitutional: no acute distress Routine HEENT Exam Head: Present normocephalic and atraumatic Eye: Present EOMI and PERRL ENT: Present mucous membranes moist Routine Neck Exam Neck: Present supple and trachea midline Routine Respiratory Exam Respiratory: Present chest non-tender, lungs clear, normal breath sounds and no resp distress Routine Cardiovascular Exam Cardiovascular: Present RRR Routine Abdominal Exam Abdominal: Present soft and normoactive bowel sounds Routine Extremities Exam Extremities: Present full ROM Routine Skin Exam Skin: Present intact, dry and warm Routine Neurological Exam Neurological: Present alert, oriented X3 and CN II-XII intact Routine Psychiatric Exam Psychiatric: Present normal affect and normal thought process Objective Labs 05/05/25 04:55 05/01/25 21:22 Labs: Laboratory Results - last 24 hr 05/01/25 05/05/25 21:22 04:55 WBC 7.4 RBC 3.08 L Hgb 8.6 L Hct 26.2 L MCV 85 MCH 27.9 MCHC 32.8 RDW Std Deviation 46.2 Plt Count 225 Neut % (Auto) 58 Lymph % (Auto) 32 [place] % (Auto) 5 Eos % (Auto) 5 Baso % (Auto) 0 Neut # (Auto) 4.3 Lymph # (Auto) 2.3 [place] # (Auto) 0.4 Eos # (Auto) 0.3 Baso # (Auto) 0.0 Immature Gran # (Auto) 0.05 H Absolute Nucleated RBC 0.00 Immature Gran % 1 H Nucleated RBC % 0 Crossmatch See Detail Assessment & Plan Problem List (1) Previous section complicating , antepartum condition or complication: Status: Acute (2) Complete placenta previa with hemorrhage, third trimester: Status: Acute (3) Supervision of high risk in third trimester: Status: Acute (4) delivery delivered: Status: Acute Assessment and plan: PPD/POD#4 1. Continue routine care 2. Transition to PO meds. 3. Encourage to ambulate/ breast-feed 4. Anticipate discharge home as soon as is cleared for discharge. Patient is requesting to be kept as inpatient until her baby is discharged. Time Spent With Patient Time: Total time spent is greater than 50% in coordination of care (as documented) at patient's floor/unit and/or counseling patient:
--- NOTE | 2025-05-05 07:53 | PD.LDDS ---
DS: Providers Provider Date of admission: 05/01/25 20:55 Primary care physician: Physician No Primary/Family Admitting Provider: Michelle Montenegro MD ([facility]) Attending Provider on Admission: Stephane Church MD Consults: 05/02/25 00:55 Referral Routine Comment: Attending Provider on DC: Lloyd Enrique MD Discharging Provider: Lloyd Enrique MD DS: Diagnosis Discharge Diagnosis (1) delivery delivered: Status: Acute (2) Previous section complicating , antepartum condition or complication: Status: Acute Problem List Completed Was Problem List Reviewed/Reconciled?: Yes Summary/Hosp Course Brief History: The patient is a 29-year-old -0-1-2 history of x 2 , the first baby was in 2014 secondary to distress. The baby was 37-6/7 weeks. She was delivered at [facility] by Dr. Everett. The second baby was born in 2018. She ruptured her bag at [address] Jaime and Rylie performed a repeat . The current has been complicated by a complete placenta previa. She states they gave her around a 10% chance of a placenta accreta on an MRI. She has been managed by Dr. Bolton in [place]. Patient stated she had some heavy vaginal bleeding tonight at 2030 and came in by ambulance. She presented to triage at 2101. I was at bedside by 2104. It was unclear whether she broke her bag but patient was bleeding fairly heavily. No contractions. Her blood pressure was stable. She was consented for an emergent repeat low-transverse section, possible hysterectomy. Dr Church was called in to assist for potential hysterectomy. Of note she was being co managed throughout this with the maternal- medicine physicians at [facility]. She was not given steroids this for lung maturity. She states she was going to have a scheduled in [place] at 37-1/2 weeks. To IV lines were not placed by the squad, 4 units of blood were placed on hold. Patient was consented for a repeat possible hysterectomy. The patient was down in the main OR OR and a timeout was called for a at 2203. Of note no records are available on presentation. All records were drawn. Her blood type is B+. Peripartum Data Delivery Method: Low Transverse Episiotomy Description: None Procedures: Procedures Operation Date: 05/01/25 21:49 Actual Procedure Side Surgeon p in OR Stephane Church MD Time Spent with Patient Time attestation: Total time spent providing and/or coordinating discharge services: Exam Vital Signs Temp Pulse Resp BP Pulse Ox O2 Del Method 97.8 F 99 16 108/74 98 Room Air 05/05/25 07:00 05/05/25 07:00 05/05/25 07:00 05/05/25 07:00 05/05/25 07:00 05/05/25 07:00 Discharge Plan Plan Patient Disposition: HOME (Self Care) Patient condition on transfer: Stable Prescriptions/Referrals Prescriptions/Med Rec: New hydrocodone-acetaminophen 5-325 mg Tablet 1 tab PO Q6HR MDD 4 PRN (Reason: Patient rated pain 9 to 10) 5 Days Qty: 20 0RF docusate sodium 100 mg Capsule 100 mg PO QDAY 30 Days Qty: 30 0RF ibuprofen 400 mg Tablet 800 mg PO Q8HR PRN (Reason: Pain Scale 4-6 (Moderate) 10 Days Qty: 40 0RF Continued One A Day Women's DHA 28 mg iron- 800 mcg combo pack PO Referrals: No Primary/Family,Physician [Primary Care Provider] - Lan ([facility]),Michelle Castle MD [Physician] - Patient/Caregiver Discharge Instructions Education Materials: Expressing Your Milk, Storing Expressed Milk, : Caring for Yourself, C Section Dc Print Language: Ukrainian Activity Restrictions/Additional Instructions: FOLLOW UP IN 1 WEEK Stand Alone Forms: Kera Award Info., Patient Portal Info Letter, Work/Release Restrictions Planned Discharge Date 05/05/25
[2025-05-05] MEDS: DOCUSATE SOD 100 MG CAPSULE PO (08:01)
[2025-05-05] MEDS: IBUPROFEN TAB 400 MG TABLET 800 MG PO (10:53)
[2025-05-05] MEDS: HYDROcodone/APAP 5/325 TABLET 1 TAB PO (14:07)
== END 2025-05-05 14:45 | disposition home or self-care (01) | DRG 788 ==
LOC: S4SX 21:28 → S4NX 22:14 → S4SX 05-12 12:54 → S4NX 05-12 12:54
PROVIDERS: Obstetrics & Gynecology; Admitting Provider Obstetrics & Gynecology; Visit Provider Specialist
PROC: (CPT 59514; principal; 2025-05-01 21:30)
DX: O44.13 Complete placenta previa with hemorrhage, third trimester (principal); O34.211 Maternal care for low transverse scar from previous cesarean delivery; O69.81X0 Labor and delivery complicated by cord around neck, without compression, not applicable or unspecified; Z37.0 Single live birth; Z3A.35 35 weeks gestation of pregnancy; Z87.59 Personal history of other complications of pregnancy, childbirth and the puerperium
CPT/HCPCS: 36415; 59409; 59899; 80053; 80307; 85025; 85610; 85730; 86703; 86706; 86762; 86780; 86850; 86900; 86901; 86923; 87491; 87591; 87661; 94762; A4217; J0689; J0690; J1200; J1885; J2274; J2371; J2590; J2704; J2765; J3010; J3490; J7050; J7120; P9016; P9047; A9270; J2270